=== PATIENT | male | born 2000 | race Hispanic/Latino ===

== ENCOUNTER 2025-09-26 05:10 | Day surgery (SDC) | payer SELFPAY ==
[2025-09-25 22:23] VITALS: BP 111/65
[2025-09-25 22:58] LABS: Hematocrit 39.5 % (39.0-52.0); Hemoglobin 13.8 g/dL (13.0-18.0); Mean Corp Hgb Conc. 34.9 g/dL (33.0-37.0); Mean Corpuscular Volume 86.8 fL (80.0-94.0); Nucleated Red Blood Cells % 0 % (-); Platelet Count 227 10^3/uL (130-400); Red Cell Dist. Width 11.9 % (11.5-14.5)
[2025-09-25 23:02] LABS: Urine Character Slightly Cloudy (Clear)
[2025-09-25 23:16] LABS: Urine Red Blood Cell 0-2 /HPF (0-2)
[2025-09-25 23:19] LABS: ALT (SGPT) 25 U/L (0-50); AST (SGOT) 23 U/L (17-59); Albumin 4.7 g/dl (3.5-5.0); Alkaline Phosphatase 90 U/L (38-126); Blood Urea Nitrogen 15 mg/dl (9-20); Calcium 9.7 mg/dl (8.4-10.2); Carbon Dioxide 30 mmol/L (22-30); Chloride 101 mmol/L (98-107); Glucose 108 mg/dl (70-99); Potassium 4.5 mmol/L (3.5-5.1); Sodium 135 mmol/L (135-145); Total Protein 7.7 g/dl (6.3-8.2); eGFR > 60.00
[2025-09-26] VITALS (16 sets, daily range): BP systolic 99–123; BP diastolic 52–69; BMI 28.9; BMI 22.7
--- NOTE | 2025-09-26 01:38 | ED.GENMED ---
History of Present Illness
<Marycruz Morris PA-C - Last Filed: 09/26/25 07:33>
General
Chief Complaint: Abdominal Pain
Source: patient
Exam Limitations: none
Time Seen by Provider: 09/26/25 01:33
Nursing documentation reviewed up to this point in time: agreed with
History of Present Illness
History of Present Illness:
Note:
CHIEF COMPLAINT(S)
Abdominal pain.
Language line used for Kuwaiti interpretation
HISTORY OF PRESENT ILLNESS
The patient is a 25-year-old male with no past medical history with no significant past medical or surgical history, who presents with abdominal pain. The pain began on September 23 and started in the center of the abdomen, migrating toward the
right side. It is constant, described by the patient as becoming progressively worse. He denies associated vomiting, diarrhea, constipation, or upper chest pain, but reports a sensation localized to the stomach. He has not had any sick contacts.
No rectal bleeding or dark tarry stools. He states that the pain does not radiate to the back. No similar prior episodes were noted. The patient does not take any daily medications except for electrolytes. He does not take p.o.
SOCIAL DETERMINANTS AFFECTING HEALTH
No social determinants mentioned.
PHYSICAL EXAM
General: Patient is well appearing and in no acute distress; non-toxic
Skin: Warm and dry, no rashes or lesions
Head: Normocephalic, atraumatic
Eyes: Sclera non-icteric. EOMs intact.
Cardiac: Regular rate and rhythm, no murmurs
Peripheral Vascular: No lower extremity swelling or edema
Pulm: Normal respiratory effort, no wheezes, rales, rhonchi
Abdomen: Tenderness noted at McBurney's point with guarding, positive electric mule operator sign, no right upper quadrant tenderness, no rebound tenderness
Neuro: CN II-XII intact, no focal neurologic deficits.
Psychiatric: Appropriate mood and affect.
PLAN
Medication for pain relief is provided followed by a CT scan to assess the appendix and gallbladder for potential abnormalities.
DIFFERENTIAL DIAGNOSIS
- The Differential Diagnosis includes, in no particular order and is not limited to:
- Appendicitis
- Gallbladder disease
- Peptic ulcer disease
- Gastroenteritis
- Renal stones
- Inflammatory bowel disease
- Gastroesophageal reflux disease (GERD)
- Biliary colic
- Hernia
- Intestinal obstruction
SUMMARY OF ENCOUNTER
The patient is evaluated for right-sided abdominal pain that began in the center and migrated. Due to the location and nature of the pain, appendicitis is considered, necessitating further imaging. Treatment was initiated to alleviate pain.
CT scan shows findings concerning for acute appendicitis secondary to appendicolith. Concern for impending perforation and possible gangrenous changes, associated luminal gas of the tip of the appendix. Patient without fever. Normal white count.
Patient not requesting any further pain management at this time. Dr. Paniagua on-call made aware at 3:33 AM.
INDEPENDENT REVIEW OF LABS AND INTERPRETATION OF TESTS
- A CT scan is ordered to evaluate for appendicitis and gallbladder pathology.
FOLLOW-UP INSTRUCTIONS
The patient will be contacted with results following the CT scan and provided instructions based on the findings.
MEDICATION RECONCILIATION
Plan to provide medication (unspecified) for abdominal pain relief.
MEDICAL DECISION MAKING
Patient will require admission to the hospital and surgical consultation. See above narrative. IV Zosyn started. Evaluated bedside by ED attending. Admitted by house CODE NUMBER STAMPER.
DIAGNOSIS
- Acute appendicitis
Phy Exam
<Marycruz Morris PA-C - Last Filed: 09/26/25 07:33>
Physical Exam
Physical Exam:
see hpi
Course
<Marycruz Morris PA-C - Last Filed: 09/26/25 07:33>
Orders/Labs/Results
Orders:
Orders
09/25/25 22:35
Urinalysis Reflex To Culture Urgent
Date Specimen was Collected: 09/25/25
Time Specimen was Collected: 22:31
Urine Microscopic Reflex Cult Urgent
09/25/25 22:38
Complete Blood Count/With Diff Urgent
Comprehensive Metabolic Panel Urgent
09/26/25 01:50
CT Abd/pelvis W Iv Cont Urgent
Comment:
Reason For Exam: RLQ pain
0.9% Sodium Chloride 250 ml [Nss] 250 ml IV BOLUS
Ketorolac [Toradol] 15 mg IV NOW STA
Ondansetron Injectable [Zofran] 4 mg IV NOW STA
09/26/25 03:33
Piperacillin/Tazo 4.5 Gram [Zosyn] 4.5 gram in 100 ml IV NOW
09/26/25 04:17
Admit/Transfer Patient As Directed
Co-Sign Provider:
Level of Care: Observation services
Assign to:: Telemetry
Physician / Group: Josue paniagua
Diagnosis: Appendicitis
Reason for Telemetry: Arrhythmia
Date to Stop Telemetry: 09/29/25
Time to Stop Telemetry: 11:00
09/26/25 04:18
PRN Pain Medication Management As Directed
May give lesser potent ordered pain med per pt: Yes
preference::
Protocol:: Medication orders for pain may be administered in a
manner that supports deferring to patient preference
when the pt is:
- Requesting an ordered lesser potent pain medication.
Least to most potent pain medications are defined
as: acetaminophen < NSAID < tramadol < opioids
(morphine, oxycodone, hydromorphone).
- Requesting a lesser dose of the same medication IF
ORDERED.
- Requesting a less intrusive route of administration
if both routes are prescribed by the provider (PO <
IV).
09/26/25 04:22
Code Status As Directed
Resuscitation Status: Full Code
09/26/25 Breakfast
NPO
Allow oral meds: No
Allow clear liquids: No
09/26/25 07:11
0.9% Sodium Chloride 1000 ml [Nss] 1,000 ml IV 100 mls/hr
Ketorolac [Toradol] 15 mg IV Q6HPRN PRN
Ondansetron Injectable [Zofran] 4 mg IV Q6HPRN PRN
Piperacillin/Tazo 4.5 Gram [Zosyn] 4.5 gram in 100 ml IV Q6H
09/26/25 07:11
Activity As Directed
Activity Level: Out of Bed-Early Mobility
Anti-embolism (SANDRA) Hose As Directed
Type: Thigh high
Intake/ Output As Directed
Frequency: Per unit guidelines
Pneumatic Compression Sleeves As Directed
Type: Knee high
Vital Signs As Directed
Frequency: Per unit guidelines
DX Deep Vein Thrombosis Video Routine
09/29/25 11:00
DC Protocol for Telemetry ONCE
Abnormal Lab Results
09/25/25 09/25/25
22:35 22:38
RBC 4.55 L 10^6/uL
(4.70-6.10)
MPV 11.4 H fL
(7.4-10.4)
Absolute Neuts (auto) 7.5 H 10^3/uL
(1.4-6.5)
Absolute Monos (auto) 0.9 H 10^3/uL
(0.1-0.6)
Lymphocytes % 16.7 L %
(20.5-51.1)
Glucose 108 H mg/dl
(70-99)
Ur Occult Blood Reflex 1+ A
(Negative)
Urine Bacteria (Reflex) Few A
(Negative)
Urine Glucose 2+ A
(Negative)
Urine Albumin (Reflex) 1+ A
(Neg - Trace)
09/25/25 22:38
09/25/25 22:38
Vital Signs
Initial and Last Documented VS:
Initial Vital Signs
Temp Pulse Resp BP Pulse Ox
98.5 F 69 18 111/65 97
09/25/25 22:23 09/25/25 22:23 09/25/25 22:23 09/25/25 22:23 09/25/25 22:23
Last Documented Vital Signs
Temp Pulse Resp BP Pulse Ox
97.7 F 55 18 106/56 99
09/26/25 06:16 09/26/25 06:16 09/26/25 06:16 09/26/25 06:16 09/26/25 06:16
<Mago Zimmerman, - Last Filed: 09/26/25 04:19>
Orders/Labs/Results
Orders:
Orders
09/25/25 22:35
Urinalysis Reflex To Culture Urgent
Date Specimen was Collected: 09/25/25
Time Specimen was Collected: 22:31
Urine Microscopic Reflex Cult Urgent
09/25/25 22:38
Complete Blood Count/With Diff Urgent
Comprehensive Metabolic Panel Urgent
09/26/25 01:50
CT Abd/pelvis W Iv Cont Urgent
Comment:
Reason For Exam: RLQ pain
0.9% Sodium Chloride 250 ml [Nss] 250 ml IV BOLUS
Ketorolac [Toradol] 15 mg IV NOW STA
Ondansetron Injectable [Zofran] 4 mg IV NOW STA
09/26/25 03:33
Piperacillin/Tazo 4.5 Gram [Zosyn] 4.5 gram in 100 ml IV NOW
09/26/25 04:17
Admit/Transfer Patient As Directed
Co-Sign Provider:
Level of Care: Observation services
Assign to:: Telemetry
Physician / Group: Josue paniagua
Diagnosis: Appendicitis
Reason for Telemetry: Arrhythmia
Date to Stop Telemetry: 09/29/25
Time to Stop Telemetry: 11:00
09/26/25 04:18
PRN Pain Medication Management As Directed
May give lesser potent ordered pain med per pt: Yes
preference::
Protocol:: Medication orders for pain may be administered in a
manner that supports deferring to patient preference
when the pt is:
- Requesting an ordered lesser potent pain medication.
Least to most potent pain medications are defined
as: acetaminophen < NSAID < tramadol < opioids
(morphine, oxycodone, hydromorphone).
- Requesting a lesser dose of the same medication IF
ORDERED.
- Requesting a less intrusive route of administration
if both routes are prescribed by the provider (PO <
IV).
09/26/25 04:22
Code Status As Directed
Resuscitation Status: Full Code
09/26/25 Breakfast
NPO
Allow oral meds: No
Allow clear liquids: No
09/26/25 07:11
0.9% Sodium Chloride 1000 ml [Nss] 1,000 ml IV 100 mls/hr
Ketorolac [Toradol] 15 mg IV Q6HPRN PRN
Ondansetron Injectable [Zofran] 4 mg IV Q6HPRN PRN
Piperacillin/Tazo 4.5 Gram [Zosyn] 4.5 gram in 100 ml IV Q6H
09/26/25 07:11
Activity As Directed
Activity Level: Out of Bed-Early Mobility
Anti-embolism (SANDRA) Hose As Directed
Type: Thigh high
Intake/ Output As Directed
Frequency: Per unit guidelines
Pneumatic Compression Sleeves As Directed
Type: Knee high
Vital Signs As Directed
Frequency: Per unit guidelines
DX Deep Vein Thrombosis Video Routine
09/29/25 11:00
DC Protocol for Telemetry ONCE
Abnormal Lab Results
09/25/25 09/25/25
22:35 22:38
RBC 4.55 L 10^6/uL
(4.70-6.10)
MPV 11.4 H fL
(7.4-10.4)
Absolute Neuts (auto) 7.5 H 10^3/uL
(1.4-6.5)
Absolute Monos (auto) 0.9 H 10^3/uL
(0.1-0.6)
Lymphocytes % 16.7 L %
(20.5-51.1)
Glucose 108 H mg/dl
(70-99)
Ur Occult Blood Reflex 1+ A
(Negative)
Urine Bacteria (Reflex) Few A
(Negative)
Urine Glucose 2+ A
(Negative)
Urine Albumin (Reflex) 1+ A
(Neg - Trace)
09/25/25 22:38
09/25/25 22:38
Vital Signs
Initial and Last Documented VS:
Initial Vital Signs
Temp Pulse Resp BP Pulse Ox
98.5 F 69 18 111/65 97
09/25/25 22:23 09/25/25 22:23 09/25/25 22:23 09/25/25 22:23 09/25/25 22:23
Last Documented Vital Signs
Temp Pulse Resp BP Pulse Ox
97.7 F 55 18 106/56 99
09/26/25 06:16 09/26/25 06:16 09/26/25 06:16 09/26/25 06:16 09/26/25 06:16
Josselynlt;Marycruz Morris PA-C - Last Filed: 09/26/25 07:33>
*Pulse Oximetry
SaO2: 97
Oxygen Mode of Delivery: Room air
Patient hypoxic: no
*Critical Care Note
Total Time (30-74mins, 75-104mins- exclusive of procedures): Not Applicable
ED Attending Note
<Marycruz Morris PA-C - Last Filed: 09/26/25 07:33>
-
Portions of this chart may have been created with voice recognition software.� Occasional wrong word or��sound alike� substitutions may have occurred due to the inherent limitations of voice recognition software.
<Mago Zimmerman DO - Last Filed: 09/26/25 04:19>
ED Attending Note
Patient seen and examined by attending physician: Yes
I performed a history and physical exam of patient and discussed management with resident, I reviewed resident's note and agree with documented findings and plan of care.: Yes
ED Attending Note:
25-year-old male with no significant past medical history presents with 2-day history of lower quadrant pain, progressive. Mild nausea and 1 episode of vomiting 2 days ago, nausea and vomiting have since resolved.
No history of similar episodes in the past.
Takes no medicines on a daily basis.
His primary language is [place]i. [employer] language line glove turner utilized.
25-year-old male appears his stated age, awake and alert, pleasant, appears in no acute distress.
Appears euvolemic.
Exam notable for moderate tenderness right lower quadrant without rebound or rigidity nor guarding.
Labs are unremarkable with normal white blood cell count, unremarkable chemistries. Unremarkable urinalysis.
CT consistent with acute appendicitis.
Will initiate IV antibiotics, continue IV fluids, n.p.o. status and will admit to general surgery service.
Discharge Plan
Departure
Patient Disposition: Admit
Date of Disposition: 09/26/25
Time of Disposition: 03:34
Admit to: Med/Surg
Admit to doctor: house CODE NUMBER STAMPER
Presentation/result/management discussed w/ accepting MD/DO: Hospitalist
Patient with high blood pressure during this ER visit?: Yes
Condition: Fair
Discharge Problem:
Acute appendicitis
Interventions
Interventions:
*Risk Screen - Suicide Last Done: 09/25/25 22:23
*General Assessment Last Done: 09/25/25 22:23
*Neglect/Abuse Screening Last Done: 09/25/25 22:23
*ED COVID-19 Vaccine History Last Done: 09/26/25 06:18
*ED Influenza Vaccine History Last Done: 09/26/25 00:37
[facility] Fall Risk Assessment Tool Last Done: 09/26/25 00:43
*Nursing Disposition Last Done: 09/26/25 05:07
LJ-Pqohys-Wmqmppxohf Assessment Last Done: 09/26/25 00:37
Discharge Date and Time
Discharge Date/Time: 09/26/25 05:25
[2025-09-26] MEDS: NSS 250 IV (01:59)
[2025-09-26] MEDS: ZOFRAN 4 MG IV (02:00)
[2025-09-26] MEDS: TORADOL 15 MG IV ×2 (02:00→08:10)
[2025-09-26] MEDS: ZOSYN 100 IV ×2 (03:40→09:54)
--- NOTE | 2025-09-26 04:37 | HPS.HSE ---
Addendum entered and electronically signed by Dustin Stout MD 09/26/25 10:38:
Patient seen and examined. Corporate Compliance Manager used ID number [id number].
Patient is a 25 yo M with no pertinent PMH who presents with approximately 3 days of abdominal pain. Best states that his pain was more central and generalized but has subsequently localized to the RLQ. Pain has been constant. Associated episodes
of nausea and vomiting, none currently. No fevers or chills. No fluctuations in GI function. No reports of chronic GI issues.
Gen: NAD
Abd: soft, tender in RLQ, mild distension, no diffuse peritonitis
Labs and CT scan imaging reviewed.
Patient is a 25 yo M p/w acute appendicitis
Options for management were reviewed. Specifically, We discussed medical management with antibiotics versus surgical management with appendectomy. Pros and cons of both approaches was discussed. Specifically, we discussed failure of medical
management and future episodes of appendicitis versus surgical risks. Mr. Sahu would like to proceed with appendectomy.
Plan for a laparoscopic appendectomy. The procedure itself, as well as the risks, benefits, and alternatives was discussed. Specifically, we discussed risks of bleeding, infection, injury to surrounding structures (bowel), and need for open
procedure. Typical postprocedural recovery was discussed. All questions answered. Consent signed.
-- Laparoscopic appendectomy
-- NPO, IVF
-- Abx: Zosyn
-- Pain control: Tylenol and IV Dilaudid PRN
Original Note:
Translation Services
-
Preferred Language: Lao
Conduit Mechanic service via: Video
Conduit Mechanic's ID Number: [id number]
Family Physician
-
Family Physician: * NONE
Chief Complaint
-
'Abdomen pain'
History of Present Illness
25 year old patient with no PMH, presents to the ER with the complain of abdomen pain. States pain started on 09/23 at mid abdomen which radiated to Right lower abdomen, he was nauseous and vomited few times the first day. Pain has been constant and
been worsening. Denies chills or fever, Denies chest pain, short of breath. Patient is Lao speaking.
Medical History
Past Medical History
Past Medical History: Reports None
Past Surgical History: Reports None
Social History
Tobacco: Non-smoker
Alcohol: Former
Drug: None
Living: With Family
Family History
Family History: Not pertinent
Allergies / Home Medications
Allergies reflects when Allergies were last updated in [employer].
Home Medications with original date entered in [employer]
Allergy/Medication List:
Allergies
Allergy/AdvReac Type Severity Reaction Status Date / Time
No Known Allergies Allergy Unverified 09/25/25 22:33
Review of Systems
-
History Source: Patient
A 12 point ROS was completed and negative except as noted: Yes
Constitutional: Reports No Symptoms
EENT: Reports No Symptoms
Respiratory: Reports No Symptoms
Cardiac: Reports No Symptoms
Abdomen/GI: Reports Abdominal Pain and Nausea
: Reports No Symptoms
Musculoskeletal: Reports No Symptoms
Skin: Reports No Symptoms
Neurological: Reports No Symptoms
Endocrine: Reports No Symptoms
Hematologic/Lymphatic: Reports No Symptoms
Psych: Reports No Symptoms
Physical Exam
Vital Signs
Vital Signs
Temp Pulse Resp BP Pulse Ox
97.8 F 73 15 112/63 97
09/26/25 03:24 09/26/25 02:30 09/26/25 02:30 09/26/25 02:00 09/26/25 02:30
Physical Exam
General: Well Developed, Well Nourished and No Apparent Distress
HEENT: NormoCephalic, Moist mucous membranes and Atraumatic
Respiratory: Clear and Non Labored Respirations
Cardiac: S1/S2 and Regular Rhythm
Breast: Deferred by me
GI: Normal Bowel Sounds, Tender and Distended (mildly )
Rectal: Deferred by Provider
Genito-urinary: No costovertebral tender
Musculoskeletal: No Clubbing, No Cyanosis and No Edema
Skin: Warm and Dry
Neuro: Awake, AO x 3 and Nonfocal/grossly intact
Hematologic/Lymphatic: No Lymphadenopathy
Psych: Calm and Intact Judgment/Insight
Laboratory Results
-
09/25/25 22:38
09/25/25 22:38
Laboratory Results
Total Bilirubin 1.0 mg/dl (0.2-1.3) 09/25/25 22:38
AST 23 U/L (17-59) 09/25/25 22:38
ALT 25 U/L (0-50) 09/25/25 22:38
Alkaline Phosphatase 90 U/L (38-126) 09/25/25 22:38
Data Reviewed
-
CT Scan: Report Reviewed by me
Lab Data: Labs Reviewed by me
Impression/Plan
-
25 year old patient presents to ER with the c/o Abdomen pain.
# Abdomen pain likely due to Acute appendicitis
-CT abd/pelvis
Acute appendicitis, Concern for impending perforation and/or gangrenous change.
Appendix is dilated up to 15mm. Appendicolith near the tip with lumina gas in hai tip of the appendix just distal to the appendicolith with associated intraluminal layering fluid
Mild stranding in the periappendiceal fat
-WBC 10.3
- UA noted
- Continue IVF
- Continue IV Zosyn
- Continue ketorolac
- NPO
-Telemetry to monitor
-Admit to Dr. Paniagua service
SCD's
Full Code
[2025-09-26] MEDS: NSS 1000 IV ×2 (08:06→16:11)
--- NOTE | 2025-09-26 10:38 | W.SUR.PREOP ---
Pre-Operative Surgical Note
-
I have examined this patient prior to the performance of the scheduled procedure.
The patient's condition is unchanged from the time of the current History and
Physical and the patient is able to undergo the scheduled procedure.
--- NOTE | 2025-09-26 13:52 | W.IMMPOSTOP ---
Surgical Immed Post Op Note
-
Primary Surgeon: Girish
Assisting Surgeon: SOPHIA Holcomb
Pre-op Diagnosis: Acute appendicitis
Post-op Diagnosis: Acute appendicitis
Procedure Performed: Laparoscopic appendectomy
Anesthesia Type: General
Specimen / Cultures:
1. Appendix
Estimated Blood Loss: 3 cc
Complications: None
Operative Findings:
1. Gangrenous tip appendicitis, healthy mid body and base, blunt mobilization
2. Mesentery taken with Ligasure, base with guillermo load stapler
[2025-09-26] MEDS: ZOSYN 50 IV ×2 (15:59→22:02)
--- NOTE | 2025-09-26 16:00 | PTCARENOTE ---
patient arrived back to unit. post op. VSS. AAOx4. Patient denies any pain at this time. IV fluids restarted. SCDs in place. x4 incision to abdomen w/ dermabond dry and intact. call zuluaga in reach. safety maintained. will continue to monitor.
--- NOTE | 2025-09-26 17:52 | PTCARENOTE ---
Patient AAox4, VSS, patient tolerated regular diet, denies nausea or pain. will continue to monitor.
[2025-09-27 03:34] VITALS: BP 110/64
[2025-09-27] MEDS: ZOSYN 50 IV ×2 (04:11→10:19)
[2025-09-27 07:00] VITALS: BP 118/72
--- NOTE | 2025-09-27 11:36 | W.PN.GS2 ---
Translation Services
-
Preferred Language: Uzbek
Track Leader service via: Video
Track Leader's ID Number: [id number]
Today's Communication / Plan
-
dispo planning
Assessment / Plan
-
25 yo male presenting with acute appendicitis now POD #1 lap appi with gangrenous appendix noted intraop
AFVSS
Doing well from surgical standpoint
Plan:
C/W IV abx, will transition to short PO course upon discharge
C/W regular diet
Analgesics prn
OOB/Ambulate. Ok to shower.
Dispo planning
Subjective Data
-
Date of Service: September 27, 2025
Pt seen and examined at bedside after primary surgeon's exam. Denies n/v. Tolerated dinner last night, yet to eat today. Denies pain. Passing flatus.
Objective Data
-
Intake and Output
09/26/25 09/27/25 09/28/25
06:59 06:59 06:59
Intake Total 2460 / 2460
Output Total 1500 / 1500
Balance 960 / 960
Intake:
Oral fluids 960 / 960
IV fluids (Total) 1350 / 1350
Normosol 150 / 150
IV piggybacks 150 / 150
Output:
Urine, Voided 1500 / 1500
Other:
Number of approximated MODERATE 8
amounts of urine
Vital Signs
Temp Pulse Resp BP Pulse Ox
97.3 F 74 18 118/72 99
09/27/25 07:00 09/27/25 07:00 09/27/25 07:00 09/27/25 07:00 09/27/25 07:00
Lab Results
09/25/25 22:38
09/25/25 22:38
Calcium 9.7 mg/dl (8.4-10.2) 09/25/25 22:38
Total Bilirubin 1.0 mg/dl (0.2-1.3) 09/25/25 22:38
AST 23 U/L (17-59) 09/25/25 22:38
ALT 25 U/L (0-50) 09/25/25 22:38
Alkaline Phosphatase 90 U/L (38-126) 09/25/25 22:38
Total Protein 7.7 g/dl (6.3-8.2) 09/25/25 22:38
Albumin 4.7 g/dl (3.5-5.0) 09/25/25 22:38
Physical Exam
-
NAD
ABD soft, nd, nt
Incisions well approximated, intact glue
Patient has a dai catheter: No
Patient has a central line: No
[2025-09-27 11:38] VITALS: BP 112/64
--- NOTE | 2025-09-27 11:51 | W.DS.TRANS ---
DC Summary - Cardiac Monitor Technician
-
Discharge Instructions:
Discharge Diagnosis/Procedures Laparoscopic appendectomy
Diet Regular
Activity No strenuous activity
Additional Activity No heavy lifting (>20 lbs) or strenuous
activities for 2 to 3 weeks postoperatively
Driving Restrictions No driving if too sore or taking narcotics
Bathing Restrictions OK to Shower
Wound Care Keep incisions clean and dry. Glue will flake
off in 2 to 3 weeks. Stitches will dissolve.
Use ice to the abdomen to reduce any bruising or
swelling.
Instructions:
Stand-Alone Forms:
Changes to Home Medications: No
Discharge Medications:
DC Medications w/original date entered in [place]
acetaminophen 325 mg tablet 650 mg (2 x 325 mg) PO Q4HPRN PRN mild pain #1 tab 09/26/25
amoxicillin 875 mg-potassium clavulanate 125 mg tablet 1 tab PO Q12 antibiotic 3 days #6 tabs 09/26/25
ibuprofen 200 mg tablet 400 - 600 mg (2 - 3 x 200 mg) PO Q6HPRN PRN moderate pain #1 tab 09/26/25
oxycodone 5 mg tablet 5 mg PO Q4HPRN PRN breakthrough/severe pain #7 tabs 09/27/25
Home Medication Changes
Pending Results: No
[2025-09-27] MEDS: NSS IV (12:10)
[2025-09-27] MEDS: FLUZONE (6 mos+) 2025-2026 FORMULA 0.5 ML IM (12:17)
--- NOTE | 2025-09-27 13:18 | CM ---
IA completed with video sign language interpreter. Pt is independent in ADLs and IADLs. Lives in an apartment with his brother and a friend and the friend's . OBS information provided in Czech, copy placed on chart. No hx of HH, SNF, DME or home 02. No
insecurities identified. Pt does not have a PCP and is not interested in our resources because [place] a different [place]- not specified. Pt would use the [facility] in [place] if scripts are needed
Pt states he has no insurance and there or no drug plan.
Pt discharged to home, no needs
== END 2025-09-27 13:05 | disposition home or self-care (01) ==
LOC: SDS 05:10
PROVIDERS: Emergency Medicine; ATTENDING PHYSICIAN Surgery; EMERGENCY PHYSICIAN Emergency Medicine
DX: K35.891 Other acute appendicitis without perforation, with gangrene (principal); K38.1 Appendicular concretions; I49.9 Cardiac arrhythmia, unspecified; Z23 Encounter for immunization
CPT/HCPCS: 44970; 74177; 80053; 81003; 81015; 85025; 88304; 90656; G0008; G0378; Q9967